=== PATIENT | female | born 1995 | race Caucasian/White ===

== ENCOUNTER 2017-06-20 09:59 | Emergency (ER) | payer OTHER ==
[~2017-06-20] VITALS: Ht 162.6 cm; Wt 63.6 kg
[2017-06-20 09:59] VITALS: TEMP 97
[2017-06-20 12:09] VITALS: BP 105/67; PULSE 78
== END 2017-06-20 12:10 | disposition home or self-care (01) ==
LOC: COL.ER 09:59
DX: S16.1XXA Strain of muscle, fascia and tendon at neck level, initial encounter (principal); S39.012A Strain of muscle, fascia and tendon of lower back, initial encounter; V89.9XXA Person injured in unspecified vehicle accident, initial encounter; Y92.481 Parking lot as the place of occurrence of the external cause